=== PATIENT | male | born 1945 | race Caucasian/White ===

== ENCOUNTER 2020-05-05 06:17 | Outpatient (CLI) | payer MEDICARE ==
[2020-05-05 13:44] LABS: #Basophils 0.1 10x3/uL (0.0-0.2); #Eosinphils 0.1 10x3/uL (0.0-0.5); #Monocytes 0.9 10x3/uL (0.0-1.1); #Neutrophils 2.9 10x3/uL (1.5-8.4); %Basophils 0.9 % (0.0-2.0); %Eosinophils 1.4 % (0.0-6.0); %Lymphocytes 35.4 % (18.0-47.0); %Monocytes 14.6 % (0.0-10.0); %Neutrophils 46.3 % (40.0-75.0); Hemoglobin 16.3 g/dL (14.0-18.0); Mean Corpuscular HGB CONC 34.7 G/DL (32.0-36.0); Mean Corpuscular Hemoglobin 33.5 PG (27.0-33.0); Mean Corpuscular Volume 96.5 fl (80.0-100.0); Mean Platelet Volume 9.6 fl (7.4-10.4); Platelet Count 231 10x3/uL (130-400); RBC Distribution Width 11.3 % (11.5-14.5); Red Blood Cell (RBC) Count 4.87 10x6/uL (4.40-5.80); White Blood Cell (WBC) Count 6.4 10x3/uL (4.5-11.0)
[2020-05-05 13:59] LABS: ALT (SGPT) 25 U/L (8-55); AST (SGOT) 24 U/L (5-34); Albumin 4.4 g/dL (3.4-4.8); Alkaline Phosphatase 101 U/L (40-110); Anion Gap 18 mmol/L (10-20); BUN (Urea Nitrogen) 18 mg/dL (8.4-25.7); Bilirubin, Direct 0.3 mg/dL (0.1-0.3); Bilirubin, Total 0.7 mg/dL (0.2-1.2); Calc. Creatinine Clearance 0 mL/min (70-130); Calcium 9.2 mg/dL (7.8-10.44); Carbon Dioxide 20 mmol/L (23-31); Chloride 106 mmol/L (98-107); Estimated GFR-MDRD Greater than 90; Globulin 2.3 g/dL (2.4-3.5); Glucose 108 mg/dL (83-110); Potassium 4.8 mmol/L (3.5-5.1); Protein, Total 6.7 g/dL (5.8-8.1); Sodium 139 mmol/L (136-145)
[2020-05-06 12:06] LABS: SARS-CoV-2 MS2 Positive; SARS-CoV-2 N Gene Negative; SARS-CoV-2 S Gene Negative; SARS-CoV-2 by NAA Not Detected (NotDetected); SARS-CoV-2 orf1ab Negative
== END 2020-05-05 06:18 | disposition home or self-care (01) ==
LOC: LABBT 06:17
PROVIDERS: ATTEND Surgery
DX: Z01.818 Encounter for other preprocedural examination (principal); Z20.828 Contact with and (suspected) exposure to other viral communicable diseases; C18.7 Malignant neoplasm of sigmoid colon
CPT/HCPCS: 80053; 80076; 82378; 85025; 93005; U0003; 87635; 93010

== ENCOUNTER 2020-05-05 12:45 | Inpatient (IN) | payer MEDICARE ==
[2020-05-10] MEDS ORDERED: Midazolam HCl 2 mg/2 ml Vial ONE (08:48)
[2020-05-10] MEDS ORDERED: Fentanyl 100 MCG/2 ML VIAL ONE ×3 (08:49→12:30)
[2020-05-10] MEDS ORDERED: Fentanyl 250 MCG/5 ML VIAL ONE (09:19)
[2020-05-10] MEDS ORDERED: SUGAMMADEX SODIUM 200 MG/2 ML VIAL ONE (09:19)
[2020-05-10] MEDS ORDERED: cefOXitin Sodium/Dextrose 2 GM/50 ML BAG ONE (09:19)
[2020-05-10] MEDS ORDERED: Ondansetron HCl/PF 4 MG/2 ML Vial IVP PRN (10:34)
[2020-05-10] MEDS ORDERED: Promethazine HCl 25 MG/ML VIAL SLOW IVP PRN (10:34)
[2020-05-10] MEDS ORDERED: Promethazine HCl 25 MG/ML VIAL IM PRN ×2 (10:34→11:44)
[2020-05-10] MEDS ORDERED: hydrALAZINE 20 MG/ML VIAL ONE (10:49)
[2020-05-10] MEDS ORDERED: Rocuronium Bromide 50 MG/5 ML VIAL ONE (10:52)
[2020-05-10] MEDS ORDERED: Ondansetron PF 4 MG/2 ML Vial IVP PRN (11:44)
[2020-05-10] MEDS ORDERED: hydrALAZINE 20 MG/ML VIAL SLOW IVP PRN (11:44)
--- NOTE | 2020-05-10 12:24 | OP ---
DATE OF PROCEDURE: 05/10/2020 PREOPERATIVE DIAGNOSIS: Sigmoid colon cancer. PROCEDURE PERFORMED: Laparoscopic-assisted sigmoid colectomy. INDICATIONS: This is a 74-year-old male, who on routine colonoscopy was found to have a near circumferential mass in sigmoid colon, biopsy was positive for adenocarcinoma. FINDINGS: The mass was tattooed and palpable in the mid sigmoid colon. DESCRIPTION OF PROCEDURE: After informed consent was obtained, the patient was taken to the operating room and given general endotracheal anesthesia, placed in the supine position, abdomen was prepped and draped in usual fashion. He underwent TAP blocks in the preop area, and an incision was made in the right upper quadrant. A Veress needle inserted, drop test performed. Pneumoperitoneum was created to a volume of 2 L of carbon dioxide. Utilizing a bladeless 5-mm trocar and 0-degree laparoscopic, direct visual entry into the abdominal cavity was performed. Pneumoperitoneum was then created to a pressure of 15 mmHg and 0-degree laparoscope inserted under direct vision, three other 5 mm ports were placed in the other three quadrants. The colon was inspected. The patient was then placed in the Trendelenburg position, left side up, was able to find the tattooed area. It was in the mid sigmoid colon, so the mesentery was scored from medial to lateral and the dissection performed looking for the ureter, then the colon was mobilized. This was done with the LigaSure. A hand-assisted port was then inserted just underneath the umbilicus, and in placement of the hand assist port, the colon section was able to be delivered right there, so proximally and distally were controlled with Nora clamps. The colon was divided with a MARIA INES, mesentery divided with the LigaSure, sent to Pathology for further analysis. A primary end-to-end anastomosis was performed utilizing single layer of interrupted 3-0 Vicryl suture. Then, the colon was placed back in the abdomen. The abdomen was irrigated. Irrigation fluid removed. There was no bleeding. Gloves and gowns were changed. The fascia was closed with interrupted #1 Prolene [id number]. Subcu was irrigated. Subcu closed with interrupted 3-0 Vicryl. Skin closed with running subcuticular 4-0 Rapide as well as interrupted 4-0 Rapide. Dermabond applied. The patient tolerated the procedure well, transferred to Recovery in good condition. Sponge and needle count verified correct x2. Job ID: [id number]
[2020-05-10] MEDS: Sodium Chloride 0.9% 1,000 ML IV SCH ×2 (13:46→22:54)
[2020-05-10] MEDS: Ketorolac Tromethamine 30 MG/ML VIAL IVP SCH ×3 (13:47→23:07)
[2020-05-10] MEDS ORDERED: Ketorolac Tromethamine 30 MG/ML VIAL ONE (13:47)
[2020-05-10] MEDS ORDERED: Ondansetron PF 4 MG/2 ML Vial ONE (14:21)
[2020-05-10] MEDS ORDERED: Lidocaine 1% PF 5 ML VIAL ONE (14:21)
[2020-05-10] MEDS ORDERED: Bupivacaine HCl 0.5%/Epinephrine 1:200,000/PF 30 ml Vial ONE (14:21)
[2020-05-10] MEDS ORDERED: Labetalol HCl 100 MG/20 ML VIAL ONE (14:21)
[2020-05-10] MEDS ORDERED: PROPOFOL 200 MG/20 ML VIAL ONE (14:21)
[2020-05-10] MEDS ORDERED: Glycopyrrolate 0.2 MG/ML 5 ML SYRINGE ONE (14:21)
[2020-05-10] MEDS ORDERED: Dexamethasone 20 MG/5 ML VIAL ONE (14:21)
[2020-05-10] MEDS ORDERED: Rocuronium Bromide 10 MG/ML (10ML VIAL) ONE (14:21)
[2020-05-10] MEDS ORDERED: Morphine 2 MG/ML VIAL SLOW IVP PRN (14:28)
[2020-05-10 16:19] VITALS: BMI 26.3
[2020-05-10] MEDS: cefOXitin Sodium/Dextrose,Iso 2 GM in Premix Bag 1 BAG IVPB SCH (17:21)
[2020-05-10] MEDS: Famotidine 20 MG TAB PO SCH (21:30)
[2020-05-10] MEDS: Famotidine/PF 20 mg/2ml Vial SLOW IVP SCH (21:30)
[2020-05-11] MEDS: cefOXitin Sodium/Dextrose,Iso 2 GM in Premix Bag 1 BAG IVPB SCH (01:52)
[2020-05-11 06:20] LABS: #Lymphocytes 1.6 thou/uL (1.20-3.40); #Monocytes 0.9 thou/uL (0.11-0.59); #Neutrophils 5.7 thou/uL (1.40-6.50); %Basophils 0.3 % (0.0-1.0); %Eosinophils 0.2 % (0.0-10.0); %Lymphocytes 19.4 % (21.0-51.0); %Monocytes 10.8 % (0.0-10.0); %Neutrophils 69.3 % (42.0-75.0); Hemoglobin 13.9 g/dL (14.0-18.0); Mean Corpuscular HGB CONC 33.5 g/dL (32.0-36.0); Mean Corpuscular Hemoglobin 34.5 pg (27.0-31.0); Mean Platelet Volume 7.1 fL (7.4-10.4); Platelet Count 175 thou/uL (130-400); RBC Distribution Width 11.2 % (11.5-14.5); Red Blood Cell (RBC) Count 4.05 mill/uL (4.70-6.10); White Blood Cell (WBC) Count 8.3 thou/uL (4.8-10.8)
[2020-05-11] MEDS: Ketorolac Tromethamine 30 MG/ML VIAL IVP SCH ×4 (06:39→23:33)
[2020-05-11 06:41] LABS: Anion Gap 11 mmol/L (10-20); BUN (Urea Nitrogen) 10 mg/dL (8.4-25.7); Calc. Creatinine Clearance 85 mL/min (70-130); Carbon Dioxide 23 mmol/L (23-31); Chloride 108 mmol/L (98-107); Estimated GFR-MDRD Greater than 90; Glucose 100 mg/dL (83-110); Potassium 4.2 mmol/L (3.5-5.1); Sodium 138 mmol/L (136-145)
[2020-05-11] MEDS: Sodium Chloride 0.9% 1,000 ML IV SCH ×3 (07:38→21:11)
[2020-05-11] MEDS: Famotidine/PF 20 mg/2ml Vial SLOW IVP SCH ×2 (09:06→20:18)
[2020-05-11] MEDS: Famotidine 20 MG TAB PO SCH ×2 (09:12→20:17)
[2020-05-11] MEDS: Enoxaparin Sodium 40 MG/0.4 ML SYRINGE SC SCH (10:37)
--- NOTE | 2020-05-11 12:08 | PRG ---
DATE OF SERVICE: 05/11/2020 SUBJECTIVE: The patient states pain is minimal. No nausea or vomiting. No flatus. PHYSICAL EXAMINATION: VITAL SIGNS: On examination, temperature is 97.8, pulse 60, and blood pressure 143/72. GENERAL: He is awake, alert. ABDOMEN: His dressing is dry. Incisions look good. No distention. LABORATORY DATA: His white count is 8.3, H/H 13 and 41; and platelet count 175. Electrolytes are fine. ASSESSMENT: Doing well. PLAN: Discontinue Na. Sips of clear liquids. His asked if he could chew gum, I said that is fine. Job ID: [id number]
[2020-05-11] MEDS: Tamsulosin HCl 0.4 MG CAP PO SCH (20:17)
[2020-05-12] MEDS: Ketorolac Tromethamine 30 MG/ML VIAL IVP SCH ×4 (06:03→23:35)
[2020-05-12] MEDS ORDERED: Iopamidol-370 76% 500 ML 1 ML ONE (08:55)
[2020-05-12] MEDS: Famotidine/PF 20 mg/2ml Vial SLOW IVP SCH ×2 (09:33→21:22)
[2020-05-12] MEDS: Enoxaparin Sodium 40 MG/0.4 ML SYRINGE SC SCH (10:13)
[2020-05-12] MEDS: Sodium Chloride 0.9% 1,000 ML IV SCH (10:42)
[2020-05-12] MEDS: Famotidine 20 MG TAB PO SCH ×2 (10:57→21:22)
[2020-05-12] MEDS ORDERED: HYDROcodone/Acetaminophen 10/325 mg Tablet PO PRN ×2 (11:18)
--- NOTE | 2020-05-12 11:45 | PRG ---
DATE OF SERVICE: 05/12/2020 SUBJECTIVE: The patient is feeling a lot better. He has had some gas and bowel movement. He did have some urinary retention that is resolving now. He is able to void with the aid of Flomax. OBJECTIVE: He looks good. The incision is healing well. There is no evidence of infection. ASSESSMENT: Doing well. PLAN: Advance diet. Job ID: [id number]
--- NOTE | 2020-05-12 17:11 | CON ---
DATE OF CONSULTATION: REASON FOR CONSULT: Colon cancer. HISTORY OF PRESENT ILLNESS: Mr. Ocampo is a pleasant 74-year-old gentleman, who underwent a routine colonoscopy by Dr. Gamez on April 29. There was a near circumferential mass in the sigmoid colon. Biopsies were positive for adenocarcinoma. He was referred to Dr. Leone, who performed a sigmoid colectomy. The tumor was 4.8 cm. It was positive for invasive moderately differentiated adenocarcinoma. It invaded the muscularis propria. There was no lymphovascular or perineural invasion. The surgical margins were free of tumor. 12 of 12 lymph nodes were negative for cancer. He had no evidence of mismatch repair deficiency on immunohistochemistry. He is a pT2, N0, Mx, stage I. The patient is recovering from his surgery. He is having some issues with urination and has been started on Flomax. He has been advanced to full liquid and is tolerating that well. He has had one small bowel movement and is passing gas. PAST MEDICAL HISTORY: None. PAST SURGICAL HISTORY: Cholecystectomy, right shoulder repair, foot repair. ALLERGIES: TO SULFA. HOME MEDICATIONS: 1. Multivitamin. 2. Ibuprofen. 3. Melatonin. FAMILY HISTORY: Mother had cervical cancer. Father had lung and pancreatic cancer. SOCIAL HISTORY: , lives with his spouse. No alcohol, tobacco, or illicit drug use. REVIEW OF SYSTEMS: A 12-point review of systems is negative except for noted in HPI. PHYSICAL EXAMINATION: VITAL SIGNS: Temperature is 97.6, pulse is 63, respiratory rate 18, BP is 148/81. He is 95% on room air. GENERAL: This is a well-developed, well-nourished male, in no acute distress. HEENT: Normocephalic and atraumatic. Pupils are equal and reactive to light. NECK: Supple. CV: Regular rate and rhythm. LUNGS: Clear. ABDOMEN: Mildly tender. He has a midline incision with dressing intact. Bowel sounds are positive. EXTREMITIES: No clubbing or cyanosis. SKIN: No rash. HEMATOLOGICAL: No petechiae or purpura. NEUROLOGICAL: Nonfocal. PERTINENT LABORATORY DATA AND X-RAYS: Current WBCs are 8.3, hemoglobin 13.9, hematocrit 41.6, platelet count is 175,000. 69% neutrophils, 20% lymphocytes. Sodium is 138, potassium 4.2, chloride 108, CO2 is 23, BUN is 10, creatinine 0.81, calcium is 8, bilirubin 0.7, AST is 24, ALT is 25, alkaline phosphatase is 101, serum total protein 6.7, albumin 4.4, globulin 2.3. CEA pre-surgical is 1.73. COVID negative. ASSESSMENT: PT2, N0, Mx, invasive moderately differentiated adenocarcinoma of the colon, status post sigmoid colectomy. DISCUSSION: The patient has tolerated his procedure well and is recovering nicely. It appears to be a stage I. He has not had any imaging of his chest, abdomen, or pelvis, and we will defer that to the outpatient setting if required. Assuming he has no metastatic disease, he would not require any chemotherapy treatment, and simply monitoring in the outpatient setting. This was discussed with the patient and we will discuss with Dr. Lawrence. Thank you for the consult. We will be happy to follow him in the outpatient setting. Job ID: [id number]
--- NOTE | 2020-05-12 18:36 | CT ---
CT abdomen with and without contrast CT pelvis with and without contrast: (CT urogram) 05/12/2020 HISTORY: 74-year-old male with colon cancer presents with gross hematuria. TECHNIQUE: Noncontrast scan, 140 second delayed postcontrast scan, and 5 minute delayed scan, of entire abdomen and pelvis. FINDINGS: At right renal upper-mid pole, there are 2 partially exophytic parenchymal lesions, on the order of 1 .5 cm in size each. They are minimally hyperdense relative to renal parenchyma on the noncontrast scan, 35 and 48 Hounsfield units for the more anterior and more posterior lateral ones, respectively, and densities of 72 and 63 Hounsfield units respectively on the nephrographic phase scan, and 54 and 49 Hounsfield units during the excretory phase. It is possible that there is partial volume avera ging artifact causing the apparent enhancement and subsequent washout of these lesions. There are several tiny subcentimeter low-density lesions in the left renal parenchyma, which are too small to characterize. There is a pedunculated 2 cm cyst protruding from the posterior cortex of the left renal upper-mid po le. There are no renal, ureteral, or bladder calculi. There are 2 surgical clips close to the anterior surface of the left psoas muscle. Prostate gland is enlarged, and invaginates the base of the urinary bladder. Urinary bladder is distended, with diffuse mild irregular mural thickening suggestive of chronic blad janessa outlet obstruction. No hydronephrosis. Thickening of left adrenal gland. No liver metastasis. Normal liver. Clips in gallbladder fossa. Spleen, right adrenal, pancreas, abdominal aorta, and appendix, are normal. No consolidation or pleural effusion at lung bases. Pneumoperitoneum: Numerous scattered tiny foci of intraperitoneal free fluid in the nondependent port ions of the abdominal cavity, plus of diffuse emphysema at the anterior left upper quadrant abdominal wall-costal boundary, are probably all due to recent abdominal surgery. In the left lower quadrant, there is a short segment of apparent circumferential thickening of the re dundant proximal sigmoid colon measuring approximately 3 x 2.5 cm in short axis, may represent a colon cancer stated in the history. No retroperitoneal, mesenteric, or miguel hepatis lymphadenopathy. IMPRESSION: 1) 2 small indeterminant right renal lesions, approximately 1.5 cm is each. These could either repres ent hemorrhagic renal cysts or neoplasm. 2) several tiny subcentimeter lesions in the parenchyma of the left kidney, too small to characterize . At least most of these are probably tiny cysts. 3) pedunculated benign 2 cm exophytic left renal cyst 4) enlarged prostate, and signs of chronic bladder outlet obstruction. 5) a short segment of apparent focal thickening in the proximal sigmoid colon may be the cancer state d in the history. Recommend correlation with surgical records. 6) status post cholecystectomy. 7) pneumoperitoneum is presumably due to recent laparoscopic surgery.
[2020-05-12] MEDS: Tamsulosin HCl 0.4 MG CAP PO SCH (21:22)
[2020-05-12] MEDS: Cefprozil 250 MG TAB PO SCH (21:22)
[2020-05-13] MEDS: Ketorolac Tromethamine 30 MG/ML VIAL IVP SCH ×2 (06:06→12:51)
[2020-05-13] MEDS: Famotidine 20 MG TAB PO SCH ×2 (08:38→20:17)
[2020-05-13] MEDS: Finasteride 5 MG TAB PO SCH (08:38)
[2020-05-13] MEDS: Enoxaparin Sodium 40 MG/0.4 ML SYRINGE SC SCH (08:38)
[2020-05-13] MEDS: Famotidine/PF 20 mg/2ml Vial SLOW IVP SCH ×2 (08:39→20:18)
[2020-05-13] MEDS: Cefprozil 250 MG TAB PO SCH ×2 (09:06→20:17)
--- NOTE | 2020-05-13 09:55 | CON ---
DATE OF CONSULTATION: 05/12/2020 REASON FOR CONSULTATION: 1. Gross hematuria. 2. Urinary retention postoperatively. 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 Gamez. The patient underwent a laparoscopic-assisted sigmoid colectomy on 05/10/[address] Pablo Leone who found, postoperatively, the patient having hematuria episodes and urinary retention. The patient was intermittently catheterized and also had a An catheter during this time. The patient reports that he had some blood appear around the An catheter, during the An catheter dwell time, does not report blood per catheter. He has blood at the beginning or end of his urinary stream when urinating and also reports some blood dripping out along the time of urination. The patient reports no previous genitourinary evaluations. No history of kidney stones. No history of cigarette smoking and no history of prior events similar to this. He does report general slowing of his urinary stream over a period of years. PAST MEDICAL HISTORY: Only significant for the recent diagnosis of sigmoid colon cancer. Past medical history, none of significance. PAST SURGICAL HISTORY: He had a colonoscopy prior to the recent surgery, previous right shoulder surgery, left foot ligament repair and cholecystectomy in the distant past. ALLERGIES: THE PATIENT REPORTS ALLERGIES TO SULFA DRUGS, IN PARTICULAR, BACTRIM. HOME MEDICATION LIST: None. FAMILY MEDICAL HISTORY: Noncontributory. PHYSICAL EXAMINATION: VITAL SIGNS: Temperature is 97.6, pulse 63, respirations 18, O2 saturation on room air is 95% with a blood pressure of 148/81. GENERAL: This is a pleasant, awake, and alert white male, in no apparent distress. HEAD, EYES, EARS, NOSE, AND THROAT: Extraocular movements are intact. Sclerae are anicteric. Oropharynx was not evaluated. NECK: Supple. There is no supraclavicular or cervical lymphadenopathy. LUNGS: Clear to auscultation bilaterally. There were no implanted chest wall devices. ABDOMEN: Soft and nontender. There are scars, consistent with the patient's known previous cholecystectomy and recent sigmoid colectomy. The patient has no other abnormal findings. GENITOURINARY: Testes found present bilaterally in the scrotum. They are smooth, anodular, nontender. There is no evidence of inguinal canal hernia. Phallus is circumcised and is without lesion. There is no evidence of gross blood per urethra. Meatus appears adequate. Digital rectal examination was performed, finds massive enlargement of the patient's prostate gland with estimated size of about 60 g. Right-sided lobe was enlarged and slightly boggy, consistent with possible prostatitis. He is nontender on examination however. There is no sinister mass noted despite the asymmetry of the overall size of the patient's prostate gland. There is no evidence of gross blood per rectum. EXTREMITIES: Appear within normal limits. NEUROLOGIC: The patient's extraocular eye movements are intact. The patient has full use of the extremities. Gait was not assessed. The patient reports he is ambulatory at this point however. LABORATORY DATA: Serum sodium is 138, potassium 4.2, chloride of 108, carbon dioxide of 23, blood urea nitrogen is 10 with a creatinine of 0.81. The point of care glucose yesterday afternoon measured at 175. The hematologic profile shows the patient's hemoglobin at 13.9, hematocrit of 41.6 with a white count of 8300. There is no significant evidence of left shift on laboratories from yesterday. No urinalysis available for evaluation. ASSESSMENT AND PLAN: 1. This patient with gross hematuria and falls into the gross hematuria pathway. Recommended studies are CT IVP study and cystoscopy. CT IVP study should probably be performed while in hospital based on recent surgical history. I recommended and protocoled one of those this evening. Cystoscopic evaluation could be performed electively as an outpatient. I recommend the patient go ahead and start on antibiotic coverage for prostatitis based on plans for cystoscopic evaluation in the near future. 2. Benign prostatic hypertrophy. The patient has longstanding history of slowing of his urinary stream. Most likely, his hematuria episodes probably coming from the large prostate tissue, fibroepithelial polyps, or fragile friable prostate veins. This would be the most likely cause, but is not the only potential cause in this patient. I am recommending treating his enlarged prostate gland with finasteride and Flomax as double therapy will minimize as indicated in the future. 3. Prostate infection based on a boggy examination. I recommend the patient would be placed on a one month course of cefprozil (Cefzil). This should be continued as an outpatient until one month course has been completed. 4. PSA history. I do not have one available for this patient, probably should be obtained with morning labs. Job ID: [id number]
--- NOTE | 2020-05-13 11:46 | RAD ---
EXAM: Portable chest PROVIDED CLINICAL HISTORY: [place] COMPARISON: None FINDINGS: Cardiac and mediastinal silhouette is within normal limits. No focal consolidation, pleural fluid or pneumothorax evident. IMPRESSION: No evidence for an acute cardiopulmonary process.
[2020-05-13 12:57] LABS: #Eosinphils 0.1 thou/uL (0.0-0.7); #Monocytes 0.6 thou/uL (0.11-0.59); #Neutrophils 5.6 thou/uL (1.40-6.50); %Basophils 0.6 % (0.0-1.0); %Eosinophils 0.9 % (0.0-10.0); %Monocytes 8.5 % (0.0-10.0); %Neutrophils 76.1 % (42.0-75.0); Hemoglobin 15.3 g/dL (14.0-18.0); Mean Corpuscular HGB CONC 34.4 g/dL (32.0-36.0); Mean Corpuscular Hemoglobin 35.6 pg (27.0-31.0); Mean Platelet Volume 7.7 fL (7.4-10.4); Platelet Count 166 thou/uL (130-400); RBC Distribution Width 11.2 % (11.5-14.5); Red Blood Cell (RBC) Count 4.29 mill/uL (4.70-6.10); White Blood Cell (WBC) Count 7.4 thou/uL (4.8-10.8)
[2020-05-13 13:38] LABS: Bacteria/HPF None Seen HPF (None Seen); Bilirubin Negative (Negative); Blood, Urine Trace (Negative); Clarity Clear (Clear); Glucose, Urine (Dipstick) Normal (Negative); Ketone, Urine Trace mg/dL (Negative); Leukocyte Negative Leu/uL (Negative); Nitrite Negative (Negative); Protein, Urine (Dipstick) Negative (Neg-Trace); RBC/HPF 0-3 HPF (0-3); Specific Gravity, Urine 1.013 (1.002-1.036); Squamous Epithelial None Seen HPF (0-3); Urobilinogen Normal mg/dL (Less than 2); WBC/HPF 0-3 HPF (0-3)
[2020-05-13] MEDS: Morphine 4 MG/ML VIAL SLOW IVP PRN ×2 (13:58→22:39)
[2020-05-13] MEDS: Tamsulosin HCl 0.4 MG CAP PO SCH (20:17)
[2020-05-14 07:06] VITALS: BP 128/72; TEMP 98.3
[2020-05-14] MEDS: Enoxaparin Sodium 40 MG/0.4 ML SYRINGE SC SCH (09:49)
[2020-05-14] MEDS: Famotidine 20 MG TAB PO SCH (09:59)
[2020-05-14] MEDS: Cefprozil 250 MG TAB PO SCH (09:59)
[2020-05-14] MEDS: Finasteride 5 MG TAB PO SCH (09:59)
[2020-05-14] MEDS: Famotidine/PF 20 mg/2ml Vial SLOW IVP SCH (10:00)
--- NOTE | 2020-05-14 13:27 | DIS ---
DATE OF ADMISSION: 05/10/2020 DATE OF DISCHARGE: 05/14/2020 DISCHARGE DIAGNOSIS: Sigmoid colon cancer, T3, N0, M0. PROCEDURES DURING ADMISSION: Laparoscopic hand-assisted sigmoid colectomy. He also had benign prostatic hypertrophy with hematuria and postop urinary retention. HOSPITAL COURSE: The patient was admitted, taken to the operating room, where he underwent a laparoscopic sigmoid colectomy. Postoperatively, he did well. An was taken out, but then he went into urinary retention, had to have an I and O cath. After that, he developed hematuria. Urology was consulted. A CT IVP was performed, did not show any ureteral injury that he did have a large prostate, felt that was from his prostate. He has been on Flomax. He is voiding well. His bowels are functioning. He is tolerating a regular diet. He was discharged to home on hydrocodone, Zofran, and Flomax and follow up with me in 2 weeks. Job ID: [id number]
== END 2020-05-14 11:46 | disposition home or self-care (01) | DRG 331 ==
LOC: SURG A 05-10 07:54 → ONC 05-10 15:57
PROVIDERS: ADMIT Surgery; ATTEND Surgery
PROC: 0DBN0ZZ Excision of Sigmoid Colon, Open Approach (ICD-10-PCS; principal; 2020-05-10)
DX: C18.7 Malignant neoplasm of sigmoid colon (principal); N41.9 Inflammatory disease of prostate, unspecified; N40.1 Benign prostatic hyperplasia with lower urinary tract symptoms; Z20.828 Contact with and (suspected) exposure to other viral communicable diseases; R33.9 Retention of urine, unspecified; N99.89 Other postprocedural complications and disorders of genitourinary system; Y84.9 Medical procedure, unspecified as the cause of abnormal reaction of the patient, or of later complication, without mention of misadventure at the time of the procedure; R31.0 Gross hematuria; Z79.899 Other long term (current) drug therapy; Z88.2 Allergy status to sulfonamides; Z90.49 Acquired absence of other specified parts of digestive tract; Z79.1 Long term (current) use of non-steroidal anti-inflammatories (NSAID)
CPT/HCPCS: 36415; 36416; 71045; 74178; 80048; 81001; 85025; 87040; 88309; J0360; J0694; J1100; J1650; J1885; J1956; J2250; J2270; J2405; J2704; J3010; Q9967; S0028